=== PATIENT | male | born 1945 | race Caucasian/White ===

== ENCOUNTER 2023-02-03 16:15 | Observation (INO) ==
--- NOTE | 2023-02-03 16:21 | ED Triage Note ---
Date of Service February 03, 2023 History of Present Illness This patient was briefly evaluated while in triage. An abbreviated physical exam was performed. This patient is a 78-year-old Male who presents to the ED for evaluation of dizziness and low blood pressure. Symptoms started yesterday. They checked his blood pressure and it has been 80s-90s/50s. He does not take any medications for blood pressure. He denies chest pain, headaches, fevers or recent illness. Physical Exam VITALS: Vitals are noted on the nurse's note and reviewed by myself. GENERAL: This is a 78-year-old male, in no significant distress, sitting in triage chair. EYES: Pupils equal round and reactive to light and accommodation. MOUTH: Mucous membranes moist. NECK: Supple without nuchal rigidity. HEART: Regular rate and rhythm without murmurs gallops or rubs. LUNGS: Clear to auscultation bilaterally without wheezes, rales or rhonchi. NEURO: Patient was alert and oriented to person place and time. Initial orders for labs and / or imaging were placed and patient was placed in the waiting area until a bed is available. Please see further documentation for the full ED course.
[2023-02-03 17:05] LABS: Basophils # (auto) 0.03 K/uL (0-0.2); Basophils % (auto) 0.6 %; Eosinophils # (auto) 0.09 K/uL (0-0.50); Eosinophils % (auto) 1.9 %; Hematocrit (blood only) 45.6 % (42.0-52.0); Hemoglobin 15.5 g/dl (14.0-18.0); Immature Granulocytes # (auto) 0.01 K/uL (0.01-0.20); Immature Granulocytes % (auto) 0.2 %; Lymphocytes # (auto) 1.55 K/uL (1.2-3.4); Lymphocytes % (auto) 33.3 %; Mean Corpuscular Hemoglobin 31.5 pg (25.0-34.0); Mean Corpuscular Volume 92.7 fL (80.0-100.0); Mean Platelet Volume 9.5 fL (9.4-12.4); Monocytes # (auto) 0.61 K/uL (0.11-0.59); Monocytes % (auto) 13.1 %; Neutrophils # (auto) 2.36 K/uL (1.40-6.50); Neutrophils % (auto) 50.9 %; Platelet Count 206 K/uL (130-400); RDW Coefficient of Variation 12.4 % (11.5-14.5); RDW Standard Deviation 42.3 fL (36.4-46.3); Red Blood Count 4.92 M/uL (4.70-6.10); White Blood Count 4.65 K/ul (4.8-10.8)
--- NOTE | 2023-02-03 17:08 | XRay Report ---
XR chest 1V portable CLINICAL HISTORY: weakness TECHNIQUE: Single frontal radiograph of the chest was obtained. Comparison: None available at the time of this dictation. FINDINGS: No lines and tubes are seen. The cardiomediastinal silhouette is normal. The lungs are clear. No evid ence of pleural effusion or pneumothorax. IMPRESSION: No acute chest disease. ACT 112: Negative or not required by law. Electronically signed by: Lalo Bains M.D. 02/03/2023 5:06 PM
--- NOTE | 2023-02-03 17:27 | Emergency Department Note ---
Impression & Plan First degree atrioventricular block, Dizziness, Near syncope, Hx of seizure disorder ED Provider Note NAME: KIMBERLI CALLAWAY AGE: 78 SEX: M : 1945 ARRIVES VIA: Walk-In INFORMANT: Patient, ED PROVIDER(S): Brian Brown MD CHIEF COMPLAINT: Dizziness, low blood pressure MEDICAL DECISION MAKING: Patient presents due to concern for dizziness and associated low blood pressure. IV was established blood work is obtained. Orthostatic vitals checked and the patient was ordered IV fluids. Patient's initial EKG showed potentially absent P waves. I did send this to Dr. Doss and obtained a repeat EKG. Repeat EKG does show that the patient is in a sinus rhythm. Dr. Doss did review the EKG and also agrees that the patient appears to have some AV disassociation and believes that the patient would benefit from admission and further evaluation at this time. Patient's blood work is grossly unremarkable. The patient has a very mild leukopenia but reportedly has had lower white counts from chronic Dilantin use in the past. The patient denies specific infectious symptoms. The patient has a normal H&H and platelet count. Kidney function was unremarkable but with prerenal azotemia. The patient did receive IV fluids. Troponin not elevated. COVID flu and RSV negative. Chest x-ray is clear. I did speak the on-call hospitalist and the patient was admitted by Dr. Najera. Prior /Outside records reviewed: I did review a neurology office visit from February 2022. 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 Patient also has known history of seizure disorder Differential diagnosis: Dehydration, orthostatic hypotension, medication side effect, anemia, arrhythmia among others were considered. Diagnostics, as interpreted by me: ECG: Possible P waves noted but do not always coincide with QRS, possible complete heart block, ventricular rate of 97 normal QRS duration normal axis no ST elevations T wave version in V3. No prior EKGs for comparison. Repeat EKG interpreted by me NSR, first-degree AV block, rate 68, prolonged TX normal QRS normal axis. T wave inversions anteriorly. Cardiac monitoring: An order was placed for continuous cardiac monitoring. The monitor shows a rate of 92 with regular rhythm. Patient was placed on pulse oximetry Medical decision rules: None Imaging studies: See below HPI: Patient presents due to concern for low blood pressure as well as dizziness. The patient states that he noted symptoms beginning yesterday. The patient does not take anything for heart rate control or for elevated blood pressure. The patient was seen by his primary neurologist Dr. Alva in the office and was referred here for further evaluation and treatment. The patient does have a prior history of stroke and does take a full dose aspirin and does have a history of seizures had been on Dilantin for some time but was taken off this last year but is still continued on Keppra. Only other medication is Flomax for history of enlarged prostate. Patient does follow with [facility] primary care as well as [facility] for neurology. Patient denies any chest pains. He does have occasional shortness of breath. No numbness tingling or focal weakness that is unchanged from prior. The patient does have chronic left-sided deficits from his prior stroke but they are fairly mild PAST MEDICAL HISTORY: See Below PAST SURGICAL HISTORY: See Below SOCIAL HISTORY: See Below HOME MEDICATIONS: See Below ALLERGIES: See Below VITALS: See Below PHYSICAL EXAMINATION: GENERAL: NAD, wearing a mask, non-toxic. EYE EXAM: Normal conjunctiva. PERRL, no anisocoria and EOM's grossly intact w/o pain. NECK: Supple, no nuchal rigidity, no adenopathy, non-tender. No signs of meningismus. FROM of the neck with good chin to chest and neck extension. No stridor. LUNGS: Clear to auscultation. Normal chest wall mechanics. HEART: NSR, no MRG. ABDOMEN: Abdomen soft, non-tender, no masses, no rebound or guarding. BACK: No CVA TTP. SKIN: No rashes and no bruising. UPPER EXTREMITIES: Upper extremities are grossly normal. LOWER EXTREMITIES: Grossly normal, no edema. NEURO EXAM: A&O x3, cranial nerves II-XII grossly intact, normal speech, moves all 4 extremities. Past Med/Surg History Medical History BPH (benign prostatic hyperplasia) CVA (cerebral vascular accident) Seizure disorder Surgical History H/O hernia repair Social History Smoking Status: Never smoker Hx Alcohol Use: No Hx Substance Use: No Preferred Language: Libyan Communication Ability: Effective Yarn Handler Required: No Beliefs That Will Affect Care: None Current Living Situation: Spouse Feels Safe at Home: Yes Safety Concerns: Feels Safe At This Time Allergies Allergies Allergy/AdvReac Type Severity Reaction Status Date / Time No Known Allergies Allergy Unverified 02/04/23 01:45 Home Meds Home Medications Medication Instructions Recorded Confirmed aspirin 325 mg tablet 325 mg PO DAILY 02/03/23 02/03/23 dutasteride 0.5 mg capsule 0.5 mg PO HS 02/03/23 02/03/23 levetiracetam 500 mg tablet 500 mg PO BID 02/03/23 02/03/23 tamsulosin 0.4 mg capsule 0.4 mg PO DAILY 02/03/23 02/03/23 Results & Data (ED) Vital Signs Vital Signs - 24 hr 02/03/23 16:18 02/03/23 17:33 02/03/23 17:44 Temperature 36.5 C Temperature Source Temporal Artery Scan Pulse Rate - Lying Pulse Rate - Sitting Pulse Rate - Standing Pulse Rate 99 H 73 Pulse Rate [Left Brachial] 95 H Pulse Rhythm [Left Brachial] Regular Pulse Strength [Left Brachial] Normal Respiratory Rate 20 19 Respiratory Effort / Characteristics Non-Labored Spontaneous Non-Labored Spontaneous Respiratory Depth Normal Normal Respiratory Pattern Regular Regular Blood Pressure - Lying Blood Pressure - Sitting Blood Pressure- Standing Blood Pressure 96/60 L Blood Pressure [Left Arm] 101/72 Blood Pressure Mean 72 Blood Pressure Mean [Left Arm] 81 Pulse Oximetry 96 96 Oxygen Delivery Method Room Air Room Air Sepsis Recent Fever Within 48 Hours No Sepsis New/Unexplained Change in Mental Status No Sepsis Action Taken by Nursing No Action Required 02/03/23 18:12 02/03/23 18:44 02/03/23 19:00 Temperature Temperature Source Pulse Rate - Lying 70 Pulse Rate - Sitting 94 H Pulse Rate - Standing 101 H Pulse Rate 64 Pulse Rate [Left Brachial] Pulse Rhythm [Left Brachial] Pulse Strength [Left Brachial] Respiratory Rate 15 Respiratory Effort / Characteristics Respiratory Depth Respiratory Pattern Blood Pressure - Lying 133/90 Blood Pressure - Sitting 151/78 H Blood Pressure- Standing 118/75 Blood Pressure Blood Pressure [Left Arm] Blood Pressure Mean Blood Pressure Mean [Left Arm] Pulse Oximetry 98 96 Oxygen Delivery Method Room Air Room Air Sepsis Recent Fever Within 48 Hours Sepsis New/Unexplained Change in Mental Status Sepsis Action Taken by Nursing 02/03/23 19:26 02/03/23 19:30 02/03/23 19:31 Temperature Temperature Source Pulse Rate - Lying Pulse Rate - Sitting Pulse Rate - Standing Pulse Rate 67 72 83 Pulse Rate [Left Brachial] Pulse Rhythm [Left Brachial] Pulse Strength [Left Brachial] Respiratory Rate 15 16 23 Respiratory Effort / Characteristics Respiratory Depth Respiratory Pattern Blood Pressure - Lying Blood Pressure - Sitting Blood Pressure- Standing Blood Pressure 116/68 135/52 L Blood Pressure [Left Arm] Blood Pressure Mean 84 79 Blood Pressure Mean [Left Arm] Pulse Oximetry 94 95 96 Oxygen Delivery Method Room Air Room Air Room Air Sepsis Recent Fever Within 48 Hours Sepsis New/Unexplained Change in Mental Status Sepsis Action Taken by Nursing 02/03/23 20:00 Temperature Temperature Source Pulse Rate - Lying Pulse Rate - Sitting Pulse Rate - Standing Pulse Rate 67 Pulse Rate [Left Brachial] Pulse Rhythm [Left Brachial] Pulse Strength [Left Brachial] Respiratory Rate 19 Respiratory Effort / Characteristics Respiratory Depth Respiratory Pattern Blood Pressure - Lying Blood Pressure - Sitting Blood Pressure- Standing Blood Pressure 130/76 Blood Pressure [Left Arm] Blood Pressure Mean 94 Blood Pressure Mean [Left Arm] Pulse Oximetry 95 Oxygen Delivery Method Room Air Sepsis Recent Fever Within 48 Hours Sepsis New/Unexplained Change in Mental Status Sepsis Action Taken by [facility]sp Medications Current Medication List: was personally reviewed by me Laboratory Data Attestation: I reviewed the patient's lab results. 02/03/23 16:43 02/03/23 16:43 Lab Results 02/03/23 02/03/23 02/03/23 Range/Units 16:43 16:43 18:16 WBC 4.65 L (4.8-10.8) K/ul RBC 4.92 (4.70-6.10) M/uL Hgb 15.5 (14.0-18.0) g/dl Hct 45.6 (42.0-52.0) % MCV 92.7 (80.0-100.0) fL MCH 31.5 (25.0-34.0) pg MCHC 34.0 (32.0-36.0) g/dL RDW Std Deviation 42.3 (36.4-46.3) fL RDW Coeff of Leandra 12.4 (11.5-14.5) % Plt Count 206 (130-400) K/uL MPV 9.5 (9.4-12.4) fL Immature Gran % (Auto) 0.2 % Neut % (Auto) 50.9 % Lymph % (Auto) 33.3 % [place] % (Auto) 13.1 % Eos % (Auto) 1.9 % Baso % (Auto) 0.6 % Neut # (Auto) 2.36 (1.40-6.50) K/uL Lymph # (Auto) 1.55 (1.2-3.4) K/uL [place] # (Auto) 0.61 H (0.11-0.59) K/uL Eos # (Auto) 0.09 (0-0.50) K/uL Baso # (Auto) 0.03 (0-0.2) K/uL Immature Gran # (Auto) 0.01 (0.01-0.20) K/uL Sodium 138 (136-145) mmol/L Potassium 4.8 (3.5-5.1) mmol/L Chloride 104 (98-107) mmol/L Carbon Dioxide 25 (21-32) mmol/L Anion Gap 9 (3-11) BUN 19 (6-23) mg/dl Creatinine 0.80 (0.6-1.4) mg/dl Est Cr Clr Drug Dosing 70.0 ml/min Est GFR ( Amer) 98.5 ml/min Est GFR (Non-Af Amer) 85.0 ml/min BUN/Creatinine Ratio 23.8 H (10-20) Glucose 113 H (70-99(Fasting)) mg/dl Calcium 8.9 (8.6-10.3) mg/dl Magnesium 2.1 (1.7-2.4) mg/dl Total Bilirubin 0.5 (0.2-1.0) mg/dl AST 41 H (13-39) U/L ALT 38 (7-52) U/L Alkaline Phosphatase 76 (34-104) U/L Troponin I High Sens 11.9 (0-20) pg/ml Total Protein 6.9 (6.0-8.3) gm/dl Albumin 4.2 (3.4-5.0) gm/dl Globulin 2.7 (2.5-4.0) gm/dl Albumin/Globulin Ratio 1.6 (0.9-2) SARS-CoV-2 (PCR) NEGATIVE (Negative) Influenza Type A (PCR) Negative (Neg) Influenza Type B (PCR) Negative (Neg) RSV (RT-PCR) Negative (Neg) Administered Medications Aspirin (Aspirin 325 Mg Ectab) 325 mg PO DAILY BETITO Stop: 03/06/23 08:59 Last Admin: 02/04/23 09:31 Dose: 325 mg Documented By: ERIKA Finasteride (Finasteride 5 Mg Tab) 5 mg PO HS BETITO Stop: 03/05/23 21:28 Last Admin: 02/03/23 22:41 Dose: 5 mg Documented By: HARIKA Sodium Chloride (Nss 1000ml) 1,000 mls @ 80 mls/hr IV .[id number] BETITO Stop: 03/05/23 21:28 Last Admin: 02/03/23 22:40 Dose: 80 mls/hr Documented By: HARIKA Levetiracetam (Levetiracetam 500 Mg Tab) 500 mg PO BID BETITO Stop: 03/05/23 21:28 Last Admin: 02/04/23 09:30 Dose: 500 mg Documented By: Admin: 02/03/23 22:41 Dose: 500 mg Documented By: HARIKA Tamsulosin HCl (Tamsulosin Hcl 0.4 Mg Cap) 0.4 mg PO DAILY BETITO Stop: 03/06/23 08:59 Last Admin: 02/04/23 09:31 Dose: 0.4 mg Documented By: ERIKA Discontinued Medications Sodium Chloride (Nss 1000ml) 1,000 mls @ 999 mls/hr IV .Q1H1M ONE Stop: 02/03/23 18:43 Last Infusion: 02/03/23 19:23 Dose: 0 mls/hr Documented By: Admin: 02/03/23 18:15 Dose: 999 mls/hr Documented By: KAYLEE Imaging Data Radiologist's Impression: Chest X-Ray 02/03/23 16:23 XR chest 1V portable CLINICAL HISTORY: weakness TECHNIQUE: Single frontal radiograph of the chest was obtained. Comparison: None available at the time of this dictation. FINDINGS: No lines and tubes are seen. The cardiomediastinal silhouette is normal. The lungs are clear. No evidence of pleural effusion or pneumothorax. IMPRESSION: No acute chest disease. ACT 112: Negative or not required by law. Electronically signed by: Lalo Bains M.D. 02/03/2023 5:06 PM Discharge Plan Visit Data Chief Complaint: Hypotension Stated Complaint: HYPOTENSION,DIZZY ED Provider: Brian Brown Discharge Problem: First degree atrioventricular block, Dizziness, Near syncope, Hx of seizure disorder Discharge Instructions Interventions: ED Discharge Assessment Last Done: 02/03/23 21:29
[2023-02-03 17:28] LABS: Troponin I High Sensitivity 11.9 pg/ml (0-20)
[2023-02-03 17:36] LABS: Albumin Level 4.2 gm/dl (3.4-5.0); Bilirubin,Total 0.5 mg/dl (0.2-1.0); Calcium 8.9 mg/dl (8.6-10.3); Magnesium 2.1 mg/dl (1.7-2.4); Potassium 4.8 mmol/L (3.5-5.1)
[2023-02-03 17:42] LABS: Albumin Globulin Ratio 1.6 (0.9-2); BUN Creatinine Ratio 23.8 (10-20); Est GFR (African American) 98.5 ml/min; Globulin 2.7 gm/dl (2.5-4.0); Total Protein 6.9 gm/dl (6.0-8.3)
[2023-02-03] MEDS ORDERED: SODIUM CHLORIDE 0.9% 1000ML 1,000 ML IV ONE (17:43)
[2023-02-03 18:52] LABS: Appearance Urine Clear (Clear); Bilirubin Urine Negative (Negative); Blood Urine Negative (Negative); Color Urine Yellow; Glucose Urine UA Negative (Negative); Ketones Urine Negative (Negative); Leukocyte Esterase Urine Negative (Negative); Nitrite Urine Negative (Negative); Protein Urine Negative (Negative); Specific Gravity Urine 1.007 (1.000-1.030); Urobilinogen Urine Negative (Negative); pH Urine 6.5 (4.5-7.5)
[2023-02-03 19:18] LABS: Influenza A virus by PCR Negative (Neg); Influenza B virus by PCR Negative (Neg); RSV by PCR Negative (Neg); SARS CoV2 RNA(COVID-19) Ceph NEGATIVE (Negative)
--- NOTE | 2023-02-03 21:28 | History and Physical Report ---
DATE OF ADMISSION: 02/03/2023. CHIEF COMPLAINT: Dizziness, hypotension. HISTORY OF PRESENT ILLNESS: A 78-year-old male with past medical history significant for CVA with carotid occlusion, ipsilateral infarct and post- infarction seizure and she was treated with Dilantin, currently on Keppra, history of BPH, muscle weakness, presents with dizziness, hypotension at home. He called his family doctor and was advised to come here. He ambulated in the ER and he did not feel dizziness again, but currently resting,and is comfortable. Denies any headache. No blurred visions, no earache, no runny nose, no sore throat, no cough, no difficulty swallowing, no chest pain, no shortness of breath, no nausea, no abdominal pain. Normal bowel and bladder movements. Denies any blood in stool or black stools. Denies any hematuria. No swelling in the legs. ALLERGIES: No known drug allergies. PAST MEDICAL HISTORY: As mentioned above. PAST SURGICAL HISTORY: Muscle biopsy, inguinal hernia repair. MEDICATIONS: The patient is on aspirin 325 mg p.o. daily, dutasteride 0.5 mg p.o. at bedtime, Keppra 500 mg p.o. b.i.d., Flomax 0.4 mg p.o. daily. FAMILY HISTORY: Significant for father had prostate cancer. Mother had uterine cancer. Brother has diabetes. Mother has hypertension. SOCIAL HISTORY: , no smoking, no alcohol, no drug use. REVIEW OF SYSTEMS: As per HPI. Rest of the review of systems is negative. PHYSICAL EXAMINATION: GENERAL: The patient is moderate build, not in acute distress. VITAL SIGNS: Temperature 36.5, pulse 67, respiratory rate 19, blood pressure 130/76, oxygen 95% on room air. HEENT: Pupils equal, round and reactive to light. Oral mucosa moist. NECK: No JVD, no neck masses. CARDIOVASCULAR: S1 and S2 heard. Regular rate and rhythm. No murmur, no gallop. RESPIRATORY SYSTEM: Normal AP diameter. No accessory muscle use. No wheezing or crackles. ABDOMEN: Soft, bowel sounds present, nontender, no distention. CENTRAL NERVOUS SYSTEM: Cranial nerves II-XII grossly intact, nonfocal. EXTREMITIES: No edema, no erythema. LABORATORY DATA: WBC 4.65, hemoglobin 15.5, hematocrit 45.6, platelets 206. Sodium 138, potassium 4.8, chloride 104, bicarbonate 25, BUN 19, creatinine 0.8, serum glucose 113, calcium 8.9, magnesium 2.1, total bilirubin 0.5, AST 41, ALT 38, alkaline phosphatase 76. Troponin I high sensitivity 11.9. Urinalysis negative. SARS-CoV-2 PCR negative. Influenza A and B PCR negative. RSV PCR negative. Chest x-ray, no acute disease in the chest. EKG, undetermined rhythm at a rate of 97. There are some P-waves, which are not conducting. Repeat EKG shows sinus rhythm with first-degree AV block at a rate of 68, nonspecific ST abnormalities. ASSESSMENT: This 78-year-old male presents with dizziness and hypotension. 1. Dizziness, hypotension, and questionable heart block, some P-waves are not conducting on EKG. Repeat EKG shows sinus rhythm with first-degree atrioventricular block. Initial troponin is negative. We will follow serial troponins. We will follow echo. Keep him n.p.o. Monitor closely in tele floor. Pacer pads. Cardiology consult. Gentle fluids. 2. History of cerebrovascular accident. On aspirin. 3. History of seizures. On Keppra. 4. History of benign prostatic hypertrophy. On Flomax and dutasteride. 5. Deep venous thrombosis prophylaxis. Sequential compression devices for now. DISPOSITION: Monitor in the tele floor. Expect to discharge home and follow with family doctor. Level 1 full code as per discussion with the patient. Job ID: [id number] MTDD
[2023-02-03] MEDS ORDERED: SODIUM CHLORIDE 0.9% 1000ML 1,000 ML IV SCH (21:29)
[2023-02-03] MEDS ORDERED: POLYETHYLENE (MIRALAX) 17 GM PACK PO PRN (21:29)
[2023-02-03] MEDS ORDERED: ACETAMINOPHEN 325 MG TAB PO PRN (21:29)
[2023-02-03] MEDS ORDERED: NITROGLYCERIN SL 0.4 MG/TAB TAB SL PRN (21:29)
[2023-02-03] MEDS ORDERED: FINASTERIDE 5 MG TAB PO SCH (21:29)
[2023-02-03] MEDS ORDERED: Patient's ALLERGY Info needs ENTERED SCH (21:45)
[2023-02-03] MEDS: levETIRAcetam 500 MG TAB PO SCH (22:41)
[2023-02-04 05:07] LABS: Basophils # (auto) 0.03 K/uL (0-0.2); Basophils % (auto) 0.9 %; Eosinophils # (auto) 0.07 K/uL (0-0.50); Hemoglobin 13.3 g/dl (14.0-18.0); Immature Granulocytes # (auto) 0.01 K/uL (0.01-0.20); Immature Granulocytes % (auto) 0.3 %; Lymphocytes # (auto) 0.82 K/uL (1.2-3.4); Lymphocytes % (auto) 23.9 %; Mean Corpuscular Hemoglobin 31.1 pg (25.0-34.0); Mean Corpuscular Hgb Conc 33.3 g/dL (32.0-36.0); Mean Corpuscular Volume 93.5 fL (80.0-100.0); Mean Platelet Volume 9.1 fL (9.4-12.4); Monocytes # (auto) 0.46 K/uL (0.11-0.59); Monocytes % (auto) 13.4 %; Neutrophils # (auto) 2.04 K/uL (1.40-6.50); Neutrophils % (auto) 59.5 %; Platelet Count 160 K/uL (130-400); RDW Coefficient of Variation 12.4 % (11.5-14.5); RDW Standard Deviation 42.4 fL (36.4-46.3); Red Blood Count 4.28 M/uL (4.70-6.10); White Blood Count 3.43 K/ul (4.8-10.8)
[2023-02-04 05:21] LABS: BUN Creatinine Ratio 21.9 (10-20); Calcium 8.4 mg/dl (8.6-10.3); Creatinine Clr Calc Pharmacy 87.5 ml/min; Est GFR (African American) 107.9 ml/min; Est GFR (Non-African American) 93.1 ml/min; Magnesium 1.9 mg/dl (1.7-2.4); Potassium 4.7 mmol/L (3.5-5.1)
[2023-02-04] MEDS ORDERED: ASPIRIN 325 MG ECTAB PO SCH (09:00)
[2023-02-04] MEDS ORDERED: TAMSULOSIN HCL 0.4 MG CAP PO SCH (09:00)
[2023-02-04] MEDS: levETIRAcetam 500 MG TAB PO SCH (09:30)
--- NOTE | 2023-02-04 10:46 | Electrocardiogram Report ---
Test Reason : Blood Pressure : / mmHG Vent. Rate : 097 BPM Atrial Rate : 105 BPM P-R Int : 000 ms QRS Dur : 080 ms QT Int : 326 ms P-R-T Axes : 031 008 004 degrees QTc Int : 414 ms Sinus tachycardia with complete heart block and a junctional escape rhythm Nonspecific T wave abnormality Abnormal ECG No previous ECGs available Confirmed by Kg Paredes ([id number]) on 02/04/2023 10:45:54 AM Referred By: Berny Alva Confirmed By:Kg Paredes
--- NOTE | 2023-02-04 10:46 | Electrocardiogram Report ---
Test Reason : Blood Pressure : / mmHG Vent. Rate : 068 BPM Atrial Rate : 068 BPM P-R Int : 244 ms QRS Dur : 084 ms QT Int : 410 ms P-R-T Axes : 036 019 033 degrees QTc Int : 435 ms Sinus rhythm with 1st degree A-V block Otherwise normal ECG When compared with ECG of 03-FEB-2023 16:43, (unconfirmed) Significant changes have occurred Confirmed by Kg Paredes ([id number]) on 02/04/2023 10:46:18 AM Referred By: Berny Alva Confirmed By:Kg Paredes
--- NOTE | 2023-02-04 10:46 | Cardiology Consultation ---
Date of Consultation February 04, 2023 Assessment & Plan (1) Dizziness: (2) Near syncope: (3) First degree atrioventricular block: -Patient's initial EKG reveals varying AV conduction, however the ventricular rate is 97 bpm. He has had 2 additional tracings both of which revealed sinus rhythm with a long first-degree AV block. Review of telemetry reveals sinus rhythm and sinus bradycardia, predominantly with heart rate of just around 60 bpm at rest. No pauses noted. When the patient had an episode at home, he did utilize his home blood pressure cuff and at least the measurement provided then revealed a relatively high heart rate associated with systolic blood pressure readings in the 80s to 90s. He has had no recent changes to his medications with his Flomax and Keppra doses having been unchanged on a chronic basis. Is difficult to determine if his symptoms may be orthostatic hypotension or due intermittent episodes of bradycardia. -I think it is premature to consider pacemaker at present. He likely has underlying conduction system disease associated with his age, but since it is spring and the prevalence of Lyme disease is high and the patient does describe having had a vague illness recently we will order a Lyme titer for completeness. -If Lyme testing is negative, anticipate discharge with planned 14-day Zio patch monitor which can be placed at the [facility] office later today or tomorrow. History of Present Illness Attending Physician: Janet Hernández MD History of Present Illness Juan M Lobato is a 78-year-old male seen in cardiology consultation per the request of Dr. Brown and Dr Najera for the evaluation of dizziness and atrial ventricular conduction disease. Patient reports having recently traveled to [place] where he visited his 85-year-old brother and did some sightseeing around [address]. He felt well during that trip but did notice having developed some ankle and foot swelling that has resolved since coming back to [place]. He has noted on and off again dizziness for 3 days. Most significant episode took place while he was washing her car. He felt like he was going to pass out especially when bending over to do physical chores. He notes having been on Dilantin on a chronic basis and was transitioned to Keppra about a year ago. With his recent dizziness, his Keppra levels were checked as an outpatient and reportedly normal, and he therefore presented to the hospital for further evaluation. On arrival to the emergency department yesterday his initial blood pressure was 96/60, and has improved for the most part to the 110s and 120s which is his usual baseline. He had taken his blood pressure at home when he had the dizziness yesterday and had readings of 92/66 with heart rate of 109 bpm, 85/47 with heart rate of 87, and 88/52 with heart rate of 88. His initial EKG performed 02/03/2023 at 1643 reveals variable AV conduction with suggestion of transient A-V dissociation. The ventricular rate however was 97 bpm with mild nonspecific T wave flattening. A repeat tracing performed at 1758 revealed sinus rhythm at 60 bpm with first- degree AV block, DC interval 244 ms. A thorough tracing performed 02/04/2023 at 8:35 AM revealed sinus rhythm at 60 bpm, once again a long first-degree AV block was observed with DC interval of 336 ms. Ongoing nonspecific repolarization changes noted. He notes a recent cold-like illness after he had returned from [place] with symptoms that resolved already however notes no recent fever, rash or tick bites. Allergies Allergy/AdvReac Type Severity Reaction Status Date / Time No Known Allergies Allergy Unverified 02/04/23 01:45 Home Medications Medication Instructions Recorded Confirmed Type aspirin 325 mg tablet 325 mg PO DAILY 02/03/23 02/03/23 History dutasteride 0.5 mg capsule 0.5 mg PO HS 02/03/23 02/03/23 History levetiracetam 500 mg tablet 500 mg PO BID 02/03/23 02/03/23 History tamsulosin 0.4 mg capsule 0.4 mg PO DAILY 02/03/23 02/03/23 History Patient History Social History Smoking Status: Never smoker Hx Alcohol Use: No Hx Substance Use: No Preferred Language: Setswana Communication Ability: Effective [employer] Finisher Required: No Beliefs That Will Affect Care: None Current Living Situation: Spouse Feels Safe at Home: Yes Safety Concerns: Feels Safe At This Time Review of Systems Review of Systems: All systems reviewed & are unremarkable except as noted in HPI & below Physical Exam Physical Exam: Temp Pulse Resp BP Pulse Ox O2 Del Method O2 Flow Rate 36.5 C 58 L 18 153/78 H 96 Room Air 15 02/03/23 16:18 02/04/23 09:00 02/04/23 09:00 02/04/23 09:00 02/04/23 09:00 02/04/23 09:00 02/04/23 04:00 Constitutional: WD/WN, vitals as above Respiratory: normal respiratory effort, lungs clear to auscultation Cardiovascular: RRR, no murmur, no edema Gastrointestinal (Abdomen): normal bowel sounds, soft, nontender, no hepatosplenomegaly Neurologic: PERRL, EOMI, accommodation nl, no face palsy, no dysarthria Results & Data Vital Signs (Past 12 Hours) Vital Signs Pulse Pulse Resp BP BP Pulse Ox O2 Del Method 02/04/23 09:00 58 L 18 153/78 H 96 Room Air 02/04/23 07:12 59 L 02/04/23 06:30 56 L 10 L 99/67 L 98 Room Air 02/04/23 06:00 56 L 11 L 123/75 93 Room Air 02/04/23 05:30 67 16 135/76 94 Room Air 02/04/23 05:00 67 15 108/69 90 Room Air 02/04/23 04:30 69 15 128/77 90 Room Air 02/04/23 04:00 69 127/75 94 Room Air 02/04/23 02:30 66 18 123/75 93 Room Air 02/04/23 02:00 64 19 115/64 95 Room Air 02/04/23 01:30 64 19 124/68 95 Room Air 02/04/23 01:00 59 L 17 126/72 93 Room Air 02/04/23 00:54 61 15 129/84 93 Room Air 02/04/23 00:30 64 16 129/84 95 Room Air 02/04/23 00:28 67 17 154/88 H 97 Room Air 02/04/23 00:00 61 17 115/75 93 Room Air 02/03/23 23:30 63 18 121/69 92 Room Air 02/03/23 22:48 79 02/03/23 23:00 69 18 126/69 92 Room Air O2 Flow Rate 02/04/23 09:00 02/04/23 07:12 02/04/23 06:30 02/04/23 06:00 02/04/23 05:30 02/04/23 05:00 02/04/23 04:30 02/04/23 04:00 15 02/04/23 02:30 02/04/23 02:00 02/04/23 01:30 02/04/23 01:00 02/04/23 00:54 02/04/23 00:30 02/04/23 00:28 02/04/23 00:00 02/03/23 23:30 02/03/23 22:48 02/03/23 23:00 Laboratory Results Cardiac Enzymes 02/03/23 02/03/23 02/04/23 Range/Units 16:43 20:14 04:54 AST 41 H (13-39) U/L Troponin I High Sens 11.9 13.2 12.0 (0-20) pg/ml CBC 02/03/23 02/04/23 Range/Units 16:43 04:54 WBC 4.65 L 3.43 L (4.8-10.8) K/ul RBC 4.92 4.28 L (4.70-6.10) M/uL Hgb 15.5 13.3 L (14.0-18.0) g/dl Hct 45.6 40.0 L (42.0-52.0) % Plt Count 206 160 (130-400) K/uL Neut # (Auto) 2.36 2.04 (1.40-6.50) K/uL Lymph # (Auto) 1.55 0.82 L (1.2-3.4) K/uL Barron # (Auto) 0.61 H 0.46 (0.11-0.59) K/uL Eos # (Auto) 0.09 0.07 (0-0.50) K/uL Baso # (Auto) 0.03 0.03 (0-0.2) K/uL Comprehensive Metabolic Panel 02/03/23 02/04/23 Range/Units 16:43 04:54 Sodium 138 140 (136-145) mmol/L Potassium 4.8 4.7 (3.5-5.1) mmol/L Chloride 104 109 H (98-107) mmol/L Carbon Dioxide 25 27 (21-32) mmol/L BUN 19 14 (6-23) mg/dl Creatinine 0.80 0.64 (0.6-1.4) mg/dl Glucose 113 H 92 (70-99(Fasting)) mg/dl Calcium 8.9 8.4 L (8.6-10.3) mg/dl AST 41 H (13-39) U/L ALT 38 (7-52) U/L Alkaline Phosphatase 76 (34-104) U/L Total Protein 6.9 (6.0-8.3) gm/dl Albumin 4.2 (3.4-5.0) gm/dl Intake and Output 02/03/23 02/04/23 02/04/23 22:59 06:59 14:59 Intake Total 1000 / 1000 0 / 1000 Balance 1000 / 1000 0 / 1000 Intake: IV 1000 / 1000 Sodium Chloride 0.9% 1000ML 1, 1000 / 1000 000 ml @ 999 mls/hr IV .Q1H1M ONE Rx#:[id number] Oral 0 / 0 Other: # Unmeasured Voids 1 Weight 73.1 kg 73.1 kg Weight Measurement Method Chair Scale Built in [facility] Diagnostic Findings EKG tracings as outlined in HPI Echocardiogram performed 02/04/2023 revealed normal left ventricular wall motion and ejection fraction of 55 to 60%, grade 1 diastolic dysfunction, mild aortic valve sclerosis without stenosis.
--- NOTE | 2023-02-04 10:47 | Electrocardiogram Report ---
Test Reason : Blood Pressure : / mmHG Vent. Rate : 060 BPM Atrial Rate : 060 BPM P-R Int : 336 ms QRS Dur : 082 ms QT Int : 456 ms P-R-T Axes : 046 035 064 degrees QTc Int : 456 ms Sinus rhythm with 1st degree A-V block Nonspecific T wave abnormality Abnormal ECG When compared with ECG of 03-FEB-2023 17:58, (unconfirmed) Inverted T waves have replaced nonspecific T wave abnormality in Anterior leads Confirmed by Kg Paredes ([id number]) on 02/04/2023 10:46:49 AM Referred By: Berny Alva Confirmed By:Kg Paredes
[2023-02-04 12:07] LABS: Lyme Ab IgG w/WB Rflx Negative (Negative); Lyme Ab IgM w/WB Rflx Negative (Negative)
--- NOTE | 2023-02-04 12:57 | Hospitalist Progress Note ---
Date of Service February 04, 2023 Assessment & Plan (1) Near syncope: Plan: Admitted with dizziness and near syncope and noted to have EKG abnormality Symptomatically improved Denies any more dizziness and/or near syncope during my examination (2) Dizziness: Plan: As above (3) First degree atrioventricular block: Plan: Noted to have bradycardia arrhythmias Latest EKG showed first-degree AV block with bradycardia at 658 and the blood pressure is maintaining Appreciate cardiology input and recommendation Lyme titer was negative Be discharged home this afternoon and will have event monitor as an outpatient (4) Hx of seizure disorder: Plan: No seizure episode Continue with his own medication Discussed with the family members and the patient She will be discharged home this afternoon Admission and Anticipated Discharge Date Admission Date: February 03, 2023 Subjective 02/04/2023 The patient was seen and examined in the emergency room in presence of the family members He has been feeling much better since admission Denies any chest pain, palpitation, shortness of breath, any epigastric or abdominal pain, nausea and or vomiting Seen by the mysql database administrator and advised that he can go home Review of Systems Review of Systems: All systems reviewed and are unremarkable except as noted below Cardiovascular: Additional Comments: No chest pain, palpitation or shortness of breath Physical Exam Physical Exam: Lying in bed comfortably Constitutional: well developed, well nourished and average body habitus; not ill appearing Eyes: PERRL, conjunctivae normal, anicteric sclerae ENMT: external ear and nose normal, oropharynx normal Neck: trachea midline, no thyromegaly Respiratory: no respiratory distress Auscultation: lungs clear to auscultation bilaterally Cardiovascular: Rate/Rhythm: regular rate, regular rhythm and + bradycardic Heart Sounds: normal S1 and normal S2; no murmur Extremities: no edema Gastrointestinal (Abdomen): Inspection/Auscultation: normal bowel sounds; abdomen not distended Percussion/Palpation: abdomen soft; abdomen nontender Musculoskeletal: No acute arthritis involving any joint Neurologic: Alert, awake and oriented x3. No focal sensory or no motor deficit appreciated Psychiatric: A+Ox3, euthymic affect Lymphatic: no cervical or axillary lymphadenopathy Results & Data Results & Data Vital Signs (Past 12 Hours) Vital Signs Pulse Pulse Resp BP BP Pulse Ox O2 Del Method 02/04/23 09:00 58 L 18 153/78 H 96 Room Air 02/04/23 07:12 59 L 05/24/23 06:30 56 L 10 L 99/67 L 98 Room Air 02/04/23 06:00 56 L 11 L 123/75 93 Room Air 02/04/23 05:30 67 16 135/76 94 Room Air 02/04/23 05:00 67 15 108/69 90 Room Air 02/04/23 04:30 69 15 128/77 90 Room Air 02/04/23 04:00 69 127/75 94 Room Air 02/04/23 02:30 66 18 123/75 93 Room Air 02/04/23 02:00 64 19 115/64 95 Room Air 02/04/23 01:30 64 19 124/68 95 Room Air 02/04/23 01:00 59 L 17 126/72 93 Room Air 02/04/23 00:54 61 15 129/84 93 Room Air O2 Flow Rate 02/04/23 09:00 02/04/23 07:12 02/04/23 06:30 02/04/23 06:00 02/04/23 05:30 02/04/23 05:00 02/04/23 04:30 02/04/23 04:00 15 02/04/23 02:30 02/04/23 02:00 02/04/23 01:30 02/04/23 01:00 02/04/23 00:54 Laboratory Results Short CBC 02/03/23 02/04/23 Range/Units 16:43 04:54 WBC 4.65 L 3.43 L (4.8-10.8) K/ul Hgb 15.5 13.3 L (14.0-18.0) g/dl Hct 45.6 40.0 L (42.0-52.0) % Plt Count 206 160 (130-400) K/uL BMP 02/03/23 02/04/23 16:43 04:54 Sodium 138 140 Potassium 4.8 4.7 Chloride 104 109 H Carbon Dioxide 25 27 BUN 19 14 Creatinine 0.80 0.64 Glucose 113 H 92 Calcium 8.9 8.4 L Liver Function 02/03/23 Range/Units 16:43 Total Bilirubin 0.5 (0.2-1.0) mg/dl AST 41 H (13-39) U/L ALT 38 (7-52) U/L Alkaline Phosphatase 76 (34-104) U/L Albumin 4.2 (3.4-5.0) gm/dl Urine 02/03/23 Range/Units Unknown Urine Color Yellow Urine Appearance Clear (Clear) Urine pH 6.5 (4.5-7.5) Ur Specific [place] 1.007 (1.000-1.030) Urine Protein Negative (Negative) Urine Glucose (UA) Negative (Negative) Medications Administered Current Inpatient Medications Acetaminophen (Acetaminophen 325 Mg Tab) 650 mg PO Q4H PRN PRN Reason: Pain or Fever Stop: 03/05/23 21:28 Aspirin (Aspirin 325 Mg Ectab) 325 mg PO DAILY [facility] Stop: 03/06/23 08:59 Last Admin: 02/04/23 09:31 Dose: 325 mg Finasteride (Finasteride 5 Mg Tab) 5 mg PO HS BETITO Stop: 03/05/23 21:28 Last Admin: 02/03/23 22:41 Dose: 5 mg Sodium Chloride (Nss 1000ml) 1,000 mls @ 80 mls/hr IV .[id number] BETITO Stop: 03/05/23 21:28 Last Admin: 02/03/23 22:40 Dose: 80 mls/hr Levetiracetam (Levetiracetam 500 Mg Tab) 500 mg PO BID [facility]ITO Stop: 03/05/23 21:28 Last Admin: 02/04/23 09:30 Dose: 500 mg Nitroglycerin (Nitroglycerin Sl 0.4 Mg/Tab Tab) 0.4 mg SL UD PRN PRN Reason: Chest Pain Stop: 03/05/23 21:28 Polyethylene Glycol (Polyethylene (Miralax) 17 Gm Pack) 17 gm PO DAILY PRN PRN Reason: Constipation Stop: 03/05/23 21:28 Tamsulosin HCl (Tamsulosin Hcl 0.4 Mg Cap) 0.4 mg PO DAILY [facility] Stop: 03/06/23 08:59 Last Admin: 02/04/23 09:31 Dose: 0.4 mg
--- NOTE | 2023-02-04 13:18 | Communication Note ---
Date of Service: February 04, 2023 Lyme test is negative. Stable for DC. He has a visit for Zio Patch placement at Cardiology , [facility] today at 3:30 pm. Plan for EP visit in 1 month, after Zio results are back. Office arranging these items.
--- NOTE | 2023-02-05 08:07 | Discharge Summary ---
Date of Service February 05, 2023 Admission HPI Per Admitting Provider DICTATED BY:Ham Najera MD DATE OF ADMISSION: 02/03/2023. CHIEF COMPLAINT: Dizziness, hypotension. HISTORY OF PRESENT ILLNESS: A 78-year-old male with past medical history significant for CVA with carotid occlusion, ipsilateral infarct and post- infarction seizure and she was treated with Dilantin, currently on Keppra, history of BPH, muscle weakness, presents with dizziness, hypotension at home. He called his family doctor and was advised to come here. He ambulated in the ER and he did not feel dizziness again, but currently resting,and is comfortable. Denies any headache. No blurred visions, no earache, no runny nose, no sore throat, no cough, no difficulty swallowing, no chest pain, no shortness of breath, no nausea, no abdominal pain. Normal bowel and bladder movements. Denies any blood in stool or black stools. Denies any hematuria. No swelling in the legs. Admission Exam Per Admitting Provider GENERAL: The patient is moderate build, not in acute distress. VITAL SIGNS: Temperature 36.5, pulse 67, respiratory rate 19, blood pressure 130/76, oxygen 95% on room air. HEENT: Pupils equal, round and reactive to light. Oral mucosa moist. NECK: No JVD, no neck masses. CARDIOVASCULAR: S1 and S2 heard. Regular rate and rhythm. No murmur, no gallop. RESPIRATORY SYSTEM: Normal AP diameter. No accessory muscle use. No wheezing or crackles. ABDOMEN: Soft, bowel sounds present, nontender, no distention. CENTRAL NERVOUS SYSTEM: Cranial nerves II-XII grossly intact, nonfocal. EXTREMITIES: No edema, no erythema. Principal Diagnosis Near syncope, first-degree AV block, hypotension-improved Discharge Exam Lying in bed comfortably Constitutional well developed, well nourished and average body habitus; not ill appearing Eyes PERRL, conjunctivae normal, anicteric sclerae ENMT external ear and nose normal, oropharynx normal Neck trachea midline, no thyromegaly Respiratory no respiratory distress Auscultation: lungs clear to auscultation bilaterally Cardiovascular Rate/Rhythm: regular rate, regular rhythm and + bradycardic Heart Sounds: normal S1 and normal S2; no murmur Extremities: no edema Gastrointestinal (Abdomen) Inspection/Auscultation: normal bowel sounds; abdomen not distended Percussion/Palpation: abdomen soft; abdomen nontender Psychiatric A+Ox3, euthymic affect Lymphatic no cervical or axillary lymphadenopathy Discharge Data Allergies Allergy/AdvReac Type Severity Reaction Status Date / Time No Known Allergies Allergy Unverified 02/04/23 01:45 Consultations 02/03/23 18:23 Consult Cardiology Routine ED Decision to Admit Stat Hospital Course (1) Near syncope: Admitted with dizziness and near syncope and noted to have EKG abnormality Symptomatically improved Denies any more dizziness and/or near syncope during my examination (2) Dizziness: As above (3) First degree atrioventricular block: Noted to have bradycardia arrhythmias Latest EKG showed first-degree AV block with bradycardia at 658 and the blood pressure is maintaining Appreciate cardiology input and recommendation Lyme titer was negative Be discharged home this afternoon and will have event monitor as an outpatient (4) Hx of seizure disorder: No seizure episode Continue with his own medication Discussed with the family members and the patient She will be discharged home this afternoon Total Time Total Time Spent Total Time Spent (In Minutes): 35 minues Discharge Plan Discharge Items Patient Disposition: Home - Self-Care Reason For Visit: HYPOTENSION Discharge Diagnosis: Near syncope, first-degree AV block, hypotension-improved Condition on Discharge: Good Activity: Resume your previous activity Non-emergency contact: Primary Care Provider Call non-emergency contact if: you have any medication questions and your symptoms worsen Follow-up/Referrals: Loi Mcgee DO [Primary Care Provider] - (Your doctor's office will call you with an appointment within 7 days) Diet: Heart Healthy Addtl Attending Provider Instructions: Please take precaution to avoid falls Take your medications as You need to have a 14-day Zio patch placed from [facility] following discharge Pending Studies at Discharge: No Stand-Alone Forms: My ShareHow[employer], Smoking Cessation Medications and DC Order Prescriptions: Continued aspirin 325 mg Tablet 325 mg PO DAILY levetiracetam 500 mg tablet 500 mg PO BID tamsulosin 0.4 mg capsule 0.4 mg PO DAILY dutasteride 0.5 mg capsule 0.5 mg PO HS Discharge Orders: Discharge Order (Routine); Ordered 02/04/23 Ordered By: Janet Hernández Admission Data Admit Date/Time: 02/03/23 20:08 Attending Provider: Janet Hernández Admit Provider: Ham Najera Primary Care Provider: Loi Mcgee Other Providers: Ham Najera ; Rosendo Rodriguez Other Interventions: Discharge Summary Assessment (RN) Last Done: 02/04/23 13:19
== END 2023-02-04 13:19 | disposition home or self-care (01) | DRG 310 ==
LOC: ED 16:15 → INTOOBSV 20:08 → EDINP 20:08 → SUATTDRO 20:08 → EDINP 21:29